=== PATIENT | female | born 1965 | race Caucasian/White ===

== ENCOUNTER 2023-07-02 06:50 | Emergency (ER) | payer OTHER ==
[2023-07-02 07:25] VITALS: TEMP 97.4; O2SAT 97
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
[2023-07-02 08:22] VITALS: PULSE 59; RESP 17
[2023-07-02 08:50] LABS: Absolute Neutrophil Ct (ANC) 4.08 x10^3/uL (1.4-6.9); BASOPHIL % 0.6 % (0.0-0.4); Basophil (Absolute #) 0.04 x10^3/uL (0-0.4); Eosinophil % 2.9 % (0.00-5.0); Hematocrit 43.2 % (35-47); Hemoglobin 13.3 g/dL (12.0-16.0); IMMATURE GRAN # 0.02 x10^3u/L (0.00-0.03); IMMATURE GRAN % 0.3 % (0.00-0.4); Lymphocyte (Absolute #) 2.15 x10^3/uL (1.0-4.6); Lymphocytes % 31.1 % (24.0-44.0); Mean Cell Volume 86.9 fL (78-100); Mean Corpuscular Hemoglobin 26.8 pg (26-32); Mean Corpuscular Hgb Concent. 30.8 g/dL (32-36); Mean Platelet Volume 10.9 fL (7.5-11.0); Monocyte (Absolute #) 0.43 x10^3/uL (0.0-1.3); Monocytes % 6.2 % (0.0-12.0); Neutrophil % 58.9 % (36.0-66.0); Platelet Count 172 x10^3/uL (150-450); Red Blood Count 4.97 x10^6/uL (4.1-5.4); Red Cell Distribution Width 13.1 % (11.5-14.0); White Blood Count 6.9 x10^3/uL (4.0-10.5)
[2023-07-02 09:02] LABS: ALBUMIN 4.3 g/dL (3.5-5.0); ALKALINE PHOSPHATASE 99 U/L (38-126); ANION GAP 12.7 MEQ/L (5-15); BLOOD UREA NITROGEN 13 mg/dL (7-17); CHLORIDE 107 mmol/L (98-107); Calcium 9.1 mg/dL (8.4-10.2); Carbon Dioxide 25 mmol/L (22-30); Creatinine 1 0.68 mg/dL (0.52-1.04); EST GLOMERULAR FILTRATION RATE > 60.0 ML/MIN; Glucose 101 mg/dL (74-106); SGOT/AST 21 U/L (14-36); SGPT/ALT 19 U/L (0-35); SODIUM 140 mmol/L (137-145)
[2023-07-02] MEDS ORDERED: TORAdol 30 mg Injection IV ONE (09:39)
[2023-07-02] MEDS ORDERED: TORAdol 30 mg Injection IM ONE (09:39)
[2023-07-02] MEDS ORDERED: TORAdol 30 mg Injection ONE (09:40)
[2023-07-02 10:13] VITALS: BP 120/67
--- NOTE | 2023-07-02 11:08 | XRAY ---
CLINICAL HISTORY:left lung nodule COMPARISON:None TECHNIQUE:Contiguous axial CT images of the chest were acquired without administration of intravenous contrast. Coronal and sagittal reconstructions were obtained. CTD 8.9 mGy, DLP 335.40 mGy cm. FINDINGS: Multiple diffusely calcified nodules of various size are seen scattered in both lung amezcua, one of them in right lung measures 1.2 x 0.8cm in right upper lobe anterior segment and in left lung measures 1.2 x 1.0cm in left lower lobe lateral segment. Few conglomerate calcified enlarged mediastinal and hilar lymph nodes are seen, one of these measures 1.2 x 0.9cm on right hilar region. Atelectatic bands seen in both lower zones. The scanned pulmonary parenchyma shows no definite consolidation or collapse. No free or encysted pleural effusion. Heart size is normal and there is no pericardial effusion. Main pulmonary artery is dilated measures 3.4 cm in diameter representing pulmonary artery hypertension. Patent tracheobronchial tree. Scanned upper abdomen is unremarkable. Degenerative changes seen in the visualized spine. No fracture identified. Vascular calcification seen. IMPRESSION: No fracture identified. Pulmonary artery hypertension. Multiple diffusely calcified small nodules of various size are seen scattered in both lung amezcua with bilateral calcified lymph nodes as described above, findings are likely sequela of previous infective / inflammatory process. No evidence of solid nodule seen in either lung field. Electronically Signed by: Abdulaziz Cazares MD. (07/02/2023 10:05:58 SCIENCE CENTER DISPLAY BUILDER)
--- NOTE | 2023-07-02 11:12 | XRAY ---
CLINICAL HISTORY:left lung nodule COMPARISON:None TECHNIQUE:Contiguous axial CT images of the chest were acquired with the administration of intravenous contrast. Coronal and sagittal reconstructions were obtained. CTD 10.13 mGy, DLP 377.06 mGy cm. FINDINGS: Multiple diffusely calcified nodules of various size are seen scattered in both lung amezcua, one of them in the right lung measuring 1.2 x 0.8cm in right upper lobe anterior segment and in left lung measuring 1.2 x 1.0cm in the left lower lobe lateral segment. Few conglomerate calcified enlarged mediastinal and hilar lymph nodes are seen, one of these measures 1.2 x 0.9cm on the right hilar region. Atelectatic bands seen in both lower zones. The scanned pulmonary parenchyma shows no definite consolidation or collapse. No enhancing mass lesion was seen. No free or encysted pleural effusion. Heart size is normal and there is no pericardial effusion. Patent tracheobronchial tree. The main pulmonary artery is dilated measuring 3.4 cm in diameter representing pulmonary artery hypertension. The scanned upper abdomen is unremarkable. Degenerative changes seen in the visualized spine. Vascular calcification seen. Few surgical clary were seen in left axilla likely due to prior intervention. IMPRESSION: 1. No fracture was identified. 2. Pulmonary artery hypertension. 3. Multiple diffusely calcified small nodules of various size are seen scattered in both lung amezcua with bilateral calcified lymph nodes as described above, findings are likely sequela of previous infective / inflammatory process. 4. No evidence of solid nodule seen in either lung field. 5. No enhancing mass lesion seen. Electronically Signed by: Abdulaziz Cazares MD. (07/02/2023 10:10:53 PROTECTIVE SIGNAL OPERATIONS SUPERVISOR)
--- NOTE | 2023-07-02 20:12 | XRAY ---
Indication: Left chest pain. Comparison: April 30, 2022 PA/lateral chest again hyperinflated with scattered calcified granulomas bilaterally. New minimal bibasilar subsegmental atelectasis/scarring. No focal infiltrate, consolidation, or large effusion. Heart not enlarged. Bony thorax intact again with osteopenia, mild degenerative changes, and lower cervical fusion hardware. Impression: Nonacute hyperinflated chest with chronic features.
== END 2023-07-02 11:48 | disposition home or self-care (01) ==
LOC: ED 06:50
DX: S20.212A Contusion of left front wall of thorax, initial encounter (principal); W01.190A Fall on same level from slipping, tripping and stumbling with subsequent striking against furniture, initial encounter; Y93.K3 Activity, grooming and shearing an animal; E11.9 Type 2 diabetes mellitus without complications; Z79.84 Long term (current) use of oral hypoglycemic drugs; Z79.899 Other long term (current) drug therapy; Z79.891 Long term (current) use of opiate analgesic; Z72.0 Tobacco use
CPT/HCPCS: 36000; 36415; 71046; 71250; 71260; 80053; 85025; 96374; 99284; J1885

== ENCOUNTER 2024-09-05 09:29 | Day surgery (SDC) | payer BC, OTHER ==
[2024-09-05] MEDS ORDERED: Xylocaine-Mpf 2% 5 Ml Vial IJ ONE (09:30)
[2024-09-05] MEDS ORDERED: Decadron 4 MG INJ IV ONE (09:30)
[2024-09-05] MEDS ORDERED: DIPRIVAN 200 MG/20 ML IV ONE (10:53)
--- NOTE | 2024-09-05 13:22 | XRAY ---
Indication: Left C2-C4 MBB. Intraoperative fluoroscopy provided for 19 seconds. 3 digital spot image submitted for interpretation demonstrates posterior needle tips projecting over the expected left C2-C4 nerve roots. Correlate with intraoperative findings/report. Incidental incompletely visualized lower cervical fusion hardware.
--- NOTE | 2024-09-05 14:04 | XRAY ---
19 seconds of fluoroscopy was used in surgery for a left C2-C4 MBB.
== END 2024-09-05 11:29 | disposition home or self-care (01) ==
LOC: SDC-PAIN 09:29
PROVIDERS: ATTEND Psychiatry & Neurology Pain Medicine
DX: M47.812 Spondylosis without myelopathy or radiculopathy, cervical region (principal); E11.9 Type 2 diabetes mellitus without complications
CPT/HCPCS: 64490; 64491; 72040; 77002; 82947; J1100; J2704

== ENCOUNTER 2024-10-10 07:59 | Day surgery (SDC) | payer BC, OTHER ==
[2024-10-10] MEDS ORDERED: Decadron 4 MG INJ IV ONE (08:00)
[2024-10-10] MEDS ORDERED: Xylocaine-Mpf 2% 5 Ml Vial IJ ONE (08:00)
[2024-10-10] MEDS ORDERED: DIPRIVAN 200 MG/20 ML IV ONE (09:00)
--- NOTE | 2024-10-10 12:28 | XRAY ---
Indication: Right C2-C4 MBB. Intraoperative fluoroscopy was provided for 11 seconds. 2 digital spot images submitted for interpretation demonstrates posterior needle tips projecting over expected right C2-C4 nerve roots. Correlate with intraoperative findings/report.
--- NOTE | 2024-10-10 12:52 | XRAY ---
18 seconds of fluoroscopy was used in surgery for a right C2-C4 MBB.
== END 2024-10-10 10:12 | disposition home or self-care (01) ==
LOC: SDC-PAIN 07:59
PROVIDERS: ATTEND Psychiatry & Neurology Pain Medicine
DX: M47.812 Spondylosis without myelopathy or radiculopathy, cervical region (principal); E11.9 Type 2 diabetes mellitus without complications
CPT/HCPCS: 72040; 77002; 82947; J1100; J2704

== ENCOUNTER 2024-12-17 09:21 | Day surgery (SDC) | payer BC, OTHER ==
--- NOTE | 2024-12-17 09:04 | HP ---
HISTORY OF PRESENT ILLNESS: A 59-year-old female who has had a history of polyps in 2019. Needs followup screening colonoscopy. No bloody stools. No change in bowel habits. No new pain. Family history negative for colon cancer. PAST MEDICAL HISTORY: Gastroesophageal reflux disease, heartburn, hyperlipidemia, depression and anxiety. PAST SURGICAL HISTORY: Had a . She had breast lumpectomy, spinal fusion in the past. She had a tubal in the past. She had a colonoscopy in the past. FAMILY HISTORY: Diabetes, heart disease, alcohol abuse. SOCIAL HISTORY: Occasional alcohol use, no abuse. Half pack per day smoker. MEDICATIONS: Rosuvastatin, meloxicam, hydrocodone 7.5, Lexapro, pantoprazole. ALLERGIES: No known drug allergies. REVIEW OF SYSTEMS: Twelve systems reviewed. No chest pain or palpitations. Other systems negative or noncontributory as above and per preadmission questionnaire. PHYSICAL EXAMINATION: GENERAL: Height 5 feet 5 inches. BMI 33.28. HEENT: Sclerae nonicteric. NECK: No JVD. CHEST: Equal excursion, nonlabored breathing. CARDIOVASCULAR: Regular rate and rhythm. ABDOMEN: Soft. EXTREMITIES: No cyanosis or edema. NEUROLOGIC: Alert and oriented, moving all extremities symmetrically. PSYCHIATRIC: Appropriate mood and affect. SKIN: Dry. RECTAL: Deferred until time of endoscopy exam. IMPRESSION: History of polyps years ago. Needs followup screening colonoscopy. Shown the risk sheet. Explained the procedure in detail but not limited to bleeding, infection, risk of bowel injury or perforation, risk of missed or nondiagnosis or incomplete exam possibly requiring barium enema or other studies or procedures, risks of anesthesia or sedation, risk of bowel prep, not limited to. We will proceed with outpatient colonoscopy under MAC anesthesia. Otherwise, continue medical management and medications for her depression, gastroesophageal reflux disease, and hyperlipidemia.
[2024-12-17 10:03] VITALS: RESP 18
[2024-12-17] MEDS: Lactated Ringers 1,000 ML IV SCH (10:11)
[2024-12-17] MEDS ORDERED: propofoL IV ONE ×2 (12:15→12:30)
[2024-12-17] MEDS ORDERED: Xylocaine-Mpf 2% 5 Ml Vial ONE (12:20)
[2024-12-17 13:18] VITALS: O2SAT 98
[2024-12-17 13:28] VITALS: BP 146/72; PULSE 82; TEMP 97.5
--- NOTE | 2024-12-18 12:41 | OP ---
SURGERY DATE/TIME: 12/17/2024 [id number] PREOPERATIVE DIAGNOSES: 1) Prior history of polyps. 2) Needs followup screening colonoscopy. POSTOPERATIVE DIAGNOSES: 1) A 3.5 mm polyp transverse colon. 2) A few tiny diverticula left colon. 3) Fair bowel prep. 4) Withdrawal time 10 minutes. 5) Tortuous colon. 6) ASA class 3. PROCEDURE: 1) Colonoscopy to cecum. 2) Hot snare polypectomy transverse colon polyp. SURGEON: Igor Corey MD. ANESTHESIA: MAC. ESTIMATED BLOOD LOSS: Minimal. INDICATIONS: Consent obtained. DESCRIPTION OF PROCEDURE AND FINDINGS: Patient was taken to operating room. MAC anesthesia induced. After official time-out, no disagreement with planned procedure. Digital rectal exam did not reveal any masses. Videocolonoscope inserted, passed up through tortuous sigmoid, descending, transverse, ascending colon around to the cecum. With 2 different staff members pressing on the abdomen, I was able to reach the cecum. Appendiceal orifice and valve well visualized, photo documented. There was some liquidy semisolid stool throughout the colon, just slightly limiting exam for small lesions and overall fair prep. ASA class 3. The scope was carefully withdrawn over the next 10 minutes or so, suctioning any liquidy stool out as possible. In the distal half of transverse colon was a 3.5 to 4 mm polyp that was removed with hot snare polypectomy and vigorous cautery. Good hemostasis noted. The staff said it was retrieved. Otherwise, she had a few small scattered diverticula in the left colon. There were no signs of any large polyps, masses, or obstructing lesions. There was no family here to discuss the findings with. I will see if there is a phone number to call. Otherwise, we will see her back in the office next week.
== END 2024-12-17 13:33 | disposition home or self-care (01) ==
LOC: SDC 09:21
PROVIDERS: ATTEND Surgery
DX: Z12.11 Encounter for screening for malignant neoplasm of colon (principal); Z09 Encounter for follow-up examination after completed treatment for conditions other than malignant neoplasm; Z86.0100 Personal history of colon polyps, unspecified; Z83.3 Family history of diabetes mellitus; K57.30 Diverticulosis of large intestine without perforation or abscess without bleeding; D12.3 Benign neoplasm of transverse colon
CPT/HCPCS: 82947; J2704

== ENCOUNTER 2025-08-28 09:45 | Day surgery (SDC) | payer BC, OTHER ==
[2025-08-28] MEDS ORDERED: BUPIVACAINE 0.5% VIAL IJ ONE (09:46)
[2025-08-28] MEDS ORDERED: propofoL IV ONE (12:14)
--- NOTE | 2025-08-28 13:58 | XRAY ---
Indication: Left C2-C4 MBB. Intraoperative fluoroscopy provided for 19 seconds. 2 digital spot image submitted for interpretation demonstrates posterior needle tips projecting over expected left C2-C4 nerve roots. Correlate with intraoperative findings/report.
--- NOTE | 2025-08-28 14:00 | XRAY ---
19 seconds of fluoroscopy was used in surgery for a left C2-C4 MBB.
[2025-08-28] MEDS ORDERED: Lactated Ringers 1,000 ML IV ONE (14:02)
== END 2025-08-28 12:55 | disposition home or self-care (01) ==
LOC: SDC-PAIN 09:45
PROVIDERS: ATTEND Psychiatry & Neurology Pain Medicine
DX: M47.812 Spondylosis without myelopathy or radiculopathy, cervical region (principal)